=== PATIENT | female | born 1975 | race African-American/Black ===

== ENCOUNTER 2021-06-16 06:49 | Emergency (ER) | payer MEDICAID ==
[~2021-06-16] VITALS: Ht 165.1 cm; Wt 50.0 kg
[~2021-06-16 06:49] MED LIST: ALBU2.5V13 NEB; BECL8.7A6 INH; TIOT18CA3 INH
[2021-06-16] MEDS ORDERED: IPRATROPIUM BROMIDE (0.02%) 0.5MG/2.5ML NEB HHN STA (07:30)
[2021-06-16] MEDS ORDERED: ACETAMINOPHEN 325MG TABLET PO STA (07:30)
[2021-06-16] MEDS ORDERED: METOCLOPRAMIDE HCL 10MG/2ML VIAL IV ONE (07:30)
[2021-06-16] MEDS ORDERED: METHYLPREDNISOLONE SOD SUCC 125 MG/2 ML VIAL IV STA (07:30)
[2021-06-16] MEDS: ALBUTEROL (0.083%) 2.5MG/3ML NEB HHN SCH (08:00)
[2021-06-16 09:07] LABS: CHLORIDE 110 mEq/L (98-107)
[2021-06-16 09:10] LABS: BASOPHILS % 0.2 % (0.0-2.0); EOSINOPHILS % 0.2 % (0.0-5.0); HEMATOCRIT. 36.8 % (36.0-48.0); HEMOGLOBIN. 12.2 g/dL (12.0-16.0); LYMPHOCYTES % 9.4 % (20.0-50.0); MEAN CORPUSCULAR VOLUME 87.9 fL (81.0-99.0); MONOCYTES % 3.6 % (2.0-8.0); NEUTROPHILS % 86.6 % (40.0-76.0); PLATELET 174 x1000/uL (130-400); RED BLOOD CELL COUNT 4.19 mill/uL (4.2-5.4); RED CELL DISTRIBUTION WIDTH 13.9 % (11.6-14.6)
[2021-06-16] MEDS ORDERED: ALBUTEROL (0.083%) 2.5MG/3ML NEB HHN STA (11:08)
[2021-06-16] MEDS ORDERED: P50 MT (12:31)
[2021-06-16] MEDS ORDERED: FLUT1DIS3 INH (12:31)
[2021-06-16] MEDS ORDERED: ALBU6.7H15 INH (12:31)
[2021-06-16 15:27] VITALS: BP 107/22
== END 2021-06-16 15:35 | disposition home or self-care (01) ==
LOC: ER 06:49
DX: J45.901 Unspecified asthma with (acute) exacerbation (principal); Z98.51 Tubal ligation status
CPT/HCPCS: 36415; 71045; 80053; 83880; 84484; 85025; 94640; 96374; 96375; 99285; J2765; J2930; Z7610